=== PATIENT | male | born 1955 | race Caucasian/White ===

== ENCOUNTER 2017-11-22 13:06 | Emergency (ER) | payer MEDICAID ==
[~2017-11-22] VITALS: Ht 182.9 cm; Wt 68.0 kg
[~2017-11-22 13:06] MED LIST: NO REPORTABLE MEDS
--- NOTE | 2017-11-22 13:10 | NUR ---
BIBSELF - NAUSEA/EYE PAIN AND LEFT SIDED RIBCAGE PAIN X 3 DAYS, NAD NOTED, VSS, RESP EVEN AND UNLABORED, PT PUT ON MONITOR . AT BS.
--- NOTE | 2017-11-22 13:10 | NUR ---
Note ritchie in EDM - 11/22/17 at 1443 by DAWNA NAUSEA/EYE PAIN AND LEFT SIDED RIBCAGE PAIN X 3 DAYS, NAD NOTED, VSS, RESP EVEN AND UNLABORED, PT PUT ON MONITOR AND SEIZURE PRECAUTION IMPLEMENTED. AT .
[2017-11-22 13:53] LABS: BASOPHILS # (AUTO) 0.1 /CMM (0.0-0.2); BASOPHILS % (AUTO) 1.4 % (0.0-2.0); EOSINOPHILS # (AUTO) 0.2 /CMM (0.0-0.7); EOSINOPHILS % (AUTO) 2.3 % (0.0-6.0); HEMATOCRIT 45 % (39-51); HEMOGLOBIN 15.2 g/dL (13.5-17.5); LYMPHOCYTES # (AUTO) 1.6 /CMM (0.8-4.8); LYMPHOCYTES % (AUTO) 21.8 % (20.0-44.0); MEAN CORPUSCULAR HEMOGLOBIN 30 PG (26.0-33.0); MEAN CORPUSCULAR HGB CONC 34 g/dl (31.0-36.0); MEAN CORPUSCULAR VOLUME 87 fL (80-96); MONOCYTES # (AUTO) 0.4 /CMM (0.1-1.30); MONOCYTES % (AUTO) 6.1 % (2.0-12.0); NEUTROPHILS % (AUTO) 68.4 % (43.0-81.0); PLATELET COUNT (AUTO) 263 /CMM (150-450); RDW COEFFICIENT OF VARIATION 12.4 (11.5-15.0); RED BLOOD CELL COUNT(AUTO) 5.16 MIL/uL (4.5-6.0); WHITE BLOOD COUNT (AUTO) 7.3 K/uL (4.3-11.0)
[2017-11-22] MEDS ORDERED: ONDANSETRON HCL/PF 4 MG/2 ML VIAL ONE (13:57)
[2017-11-22] MEDS ORDERED: BENZ0.5T3 PO (13:58)
[2017-11-22] MEDS ORDERED: IBUP100O18 PO (13:58)
[2017-11-22] MEDS ORDERED: PERP4TAB11 PO (13:58)
[2017-11-22] MEDS ORDERED: SIMV20TA6 PO (13:58)
[2017-11-22] MEDS ORDERED: ONDANSETRON HCL/PF 4 MG/2 ML VIAL IVP ONE (14:00)
[2017-11-22 14:05] LABS: CALCIUM, SERUM 9.4 mg/dL (8.5-10.1); POTASSIUM 3.7 mmol/L (3.5-5.1)
[2017-11-22 14:10] LABS: INR 0.97 (0.85-1.15)
--- NOTE | 2017-11-22 14:14 | NUR ---
Kaushal dugan in [facility] - 11/22/17 at 1416 by DAWNA Patient discharged to home in stable condition. Written and verbal after care instructions given. Patient verbalizes understanding of instruction.
[2017-11-22] MEDS ORDERED: ASPIRIN 325 MG TABLET PO ONE (15:00)
[2017-11-22] MEDS ORDERED: ASPIRIN 325 MG TABLET ONE (15:03)
[2017-11-22 16:37] VITALS: BP 128/70
--- NOTE | 2017-11-22 16:37 | NUR ---
Patient discharged to home in stable condition. Written and verbal after care instructions given. Patient verbalizes understanding of instruction.IV removed. Catheter intact and site benign. Pressure and 4x4 applied to site. No bleeding noted.
== END 2017-11-22 16:38 | disposition home or self-care (01) ==
LOC: ER 13:07
DX: R07.89 Other chest pain (principal); G40.909 Epilepsy, unspecified, not intractable, without status epilepticus; I10 Essential (primary) hypertension; E78.00 Pure hypercholesterolemia, unspecified; F17.200 Nicotine dependence, unspecified, uncomplicated
CPT/HCPCS: 36415; 71045-TC; 80048-TC; 84484-TC; 85025-TC; 85730-TC; A4606; J2405; Z7610

== ENCOUNTER 2018-01-24 19:53 | Emergency (ER) | payer MEDICAID ==
[~2018-01-24] VITALS: Ht 182.9 cm; Wt 77.1 kg
[~2018-01-24 19:53] MED LIST changes: +BENZ0.5T43 PO; +IBUP100O19 PO; -NO REPORTABLE MEDS; +PERP4TAB11 PO; +SIMV20TA6 PO
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
--- NOTE | 2018-01-24 21:00 | NUR ---
PT OFF TO CT
[2018-01-24] MEDS ORDERED: ACETAMINOPHEN ES 500 MG TABLET ONE (21:12)
--- NOTE | 2018-01-24 21:17 | NUR ---
PT BACK FROM CT
[2018-01-24] MEDS: ACETAMINOPHEN 325 MG TABLET PO ONE (21:18)
[2018-01-24 22:05] VITALS: BP 122/71
== END 2018-01-24 22:06 | disposition home or self-care (01) ==
LOC: ER 19:55
DX: M54.5 Low back pain (principal); G40.909 Epilepsy, unspecified, not intractable, without status epilepticus; F20.0 Paranoid schizophrenia; F17.200 Nicotine dependence, unspecified, uncomplicated; V77.6XXA Passenger on bus injured in collision with fixed or stationary object in traffic accident, initial encounter; Y93.89 Activity, other specified; Y92.89 Other specified places as the place of occurrence of the external cause; Y99.8 Other external cause status
CPT/HCPCS: 72100-TC; A4606; Z7610

== ENCOUNTER 2018-04-26 18:35 | Emergency (ER) | payer MEDICAID ==
[~2018-04-26] VITALS: Ht 182.9 cm; Wt 77.1 kg
[2018-04-26 18:53] VITALS: BP 149/74
--- NOTE | 2018-04-26 19:14 | NUR ---
RECEIVED REPORT FROM MOLLY LEWIS FOR ROSS. NO S/S OF DISTRESS NOTED. WILL CONTINUE TO MONITOR PT.
== END 2018-04-26 20:12 | disposition home or self-care (01) ==
LOC: ER 18:36
DX: H61.23 Impacted cerumen, bilateral (principal); G40.909 Epilepsy, unspecified, not intractable, without status epilepticus; I10 Essential (primary) hypertension; F22 Delusional disorders; F20.9 Schizophrenia, unspecified; F17.200 Nicotine dependence, unspecified, uncomplicated
CPT/HCPCS: 69209; 99282; A4606; Z7610

== ENCOUNTER 2019-02-14 01:50 | Emergency (ER) | payer MEDICAID ==
[~2019-02-14] VITALS: Ht 182.9 cm; Wt 72.6 kg
--- NOTE | 2019-02-14 02:25 | NUR ---
BIBSELF C/O L SHOULDER PAIN X3 DAYS. -TRAUMA ALSO C/O PRODUCTIVE COUGH X4 DAYS +GREEN SPUTUM, -FEVER
[2019-02-14] MEDS ORDERED: ACETAMINOPHEN ES 500 MG TABLET ONE (02:43)
[2019-02-14 03:00] VITALS: BP 110/76
[2019-02-14] MEDS ORDERED: ACETAMINOPHEN ES 500 MG TABLET PO ONE (03:00)
--- NOTE | 2019-02-14 03:10 | NUR ---
Patient given written and verbal discharge instructions. Patient verbalizes understanding of instructions. Patient is ambulatory with steady gait. long term placement resources provided. Patient given list of available shelters in surrounding area. pt will arrange his own transpo. snacks provided. has proper clothing.
== END 2019-02-14 03:18 | disposition home or self-care (01) ==
LOC: ER 01:53
DX: G89.29 Other chronic pain (principal); M25.512 Pain in left shoulder; G40.909 Epilepsy, unspecified, not intractable, without status epilepticus; I10 Essential (primary) hypertension; E78.00 Pure hypercholesterolemia, unspecified; Z98.890 Other specified postprocedural states; Z87.891 Personal history of nicotine dependence

== ENCOUNTER 2024-01-24 08:57 | Emergency (ER) | payer BC, MEDICAID ==
[~2024-01-24] VITALS: Ht 172.7 cm; Wt 77.1 kg
[~2024-01-24 08:57] MED LIST changes: +IBUP-2383 PO; -IBUP100O19 PO; +SIMV-46 PO; -SIMV20TA6 PO
[2024-01-24] MEDS ORDERED: KETOROLAC TROMETHAMINE 15 MG/ML VIAL ONE (09:27)
[2024-01-24] MEDS ORDERED: SUMATRIPTAN SUCCINATE 6 MG/0.5 ML VIAL SQ ONE (09:27)
[2024-01-24] MEDS ORDERED: METOCLOPRAMIDE HCL 10 MG/2 ML VIAL ONE (09:27)
[2024-01-24 09:36] LABS: BASOPHILS % (AUTO) 0.9 % (0.0-2.0); EOSINOPHILS # (AUTO) 0.2 K/uL (0.0-0.7); EOSINOPHILS % (AUTO) 3.8 % (0.0-6.0); HEMATOCRIT 37 % (39-51); HEMOGLOBIN 12.4 g/dL (13.5-17.5); LYMPHOCYTES # (AUTO) 0.9 K/uL (0.8-4.8); LYMPHOCYTES % (AUTO) 19.6 % (20.0-44.0); MEAN CORPUSCULAR HEMOGLOBIN 29 PG (26.0-33.0); MEAN CORPUSCULAR HGB CONC 33 g/dl (31.0-36.0); MEAN CORPUSCULAR VOLUME 87 fL (80-96); MONOCYTES # (AUTO) 0.5 K/uL (0.1-1.30); MONOCYTES % (AUTO) 12.1 % (2.0-12.0); NEUTROPHILS # (AUTO) 2.9 K/uL (1.8-8.9); NEUTROPHILS % (AUTO) 63.6 % (43.0-81.0); PLATELET COUNT (AUTO) 258 K/uL (150-450); RED BLOOD CELL COUNT(AUTO) 4.29 MIL/uL (4.5-6.0); RED CELL DISTRIBUTION WIDTH 14.7 % (11.5-15.0); WHITE BLOOD COUNT (AUTO) 4.5 K/uL (4.3-11.0)
[2024-01-24] MEDS: KETOROLAC TROMETHAMINE 15 MG/ML VIAL IV ONE (09:44)
[2024-01-24] MEDS: SUMATRIPTAN SUCCINATE 6 MG/0.5 ML VIAL SQ ONE (09:44)
[2024-01-24] MEDS: METOCLOPRAMIDE HCL 10 MG/2 ML VIAL IV ONE (09:44)
[2024-01-24] MEDS: IV NS 0.9% 1,000 ML BAG IV ONE (09:44)
[2024-01-24 10:00] LABS: CALCIUM, SERUM 7.9 mg/dL (8.5-10.1); CARBON DIOXIDE 29 mmol/L (21-32); CHLORIDE 103 mmol/L (98-107); CREATININE 0.9 mg/dL (0.6-1.3); GLUCOSE 123 mg/dL (74-106); POTASSIUM 3.7 mmol/L (3.5-5.1); SODIUM SERUM 140 mmol/L (136-145); UREA NITROGEN, BLOOD 15 mg/dL (7-18)
[2024-01-24 10:06] LABS: ALANINE AMINOTRANSFERASE 93 U/L (12-78); ALBUMIN 3.2 g/dL (3.4-5.0); ALKALINE PHOSPHATASE 101 U/L (46-116); ASPARTATE AMINOTRANSFERASE 44 U/L (15-37); BILIRUBIN,DIRECT 0.1 mg/dL (0.0-0.2); BILIRUBIN,TOTAL 0.5 mg/dL (0.2-1.0)
[2024-01-24] MEDS ORDERED: KETO10TA2 PO (11:10)
[2024-01-24] MEDS ORDERED: METO-295 PO (11:10)
[2024-01-24] MEDS ORDERED: SUMA100T PO (11:10)
[2024-01-24] MEDS ORDERED: GABA-532 PO (11:23)
[2024-01-24] MEDS: HALOPERIDOL LACTATE INJ 5 MG/ML VIAL IV ONE (11:47)
[2024-01-24 12:21] VITALS: BP 121/64; TEMP 98.1; O2SAT 100
== END 2024-01-24 12:25 | disposition home or self-care (01) ==
LOC: ER 09:00
DX: R51.9 Headache, unspecified (principal); R07.89 Other chest pain; I10 Essential (primary) hypertension; G40.909 Epilepsy, unspecified, not intractable, without status epilepticus; E78.00 Pure hypercholesterolemia, unspecified; F19.10 Other psychoactive substance abuse, uncomplicated; Z59.00 Homelessness unspecified
CPT/HCPCS: 99285; 96374; 70450; 71045; 96361; 96375; 96372; 93005; 85025; 80048; 80076; 36415; 84484; J3030; J2765; J7030; J1885

== ENCOUNTER 2024-03-04 20:37 | Emergency (ER) | payer BC ==
[~2024-03-04] VITALS: Ht 172.7 cm; Wt 68.0 kg
[~2024-03-04 20:37] MED LIST changes: +GABA-532 PO; +KETO10TA2 PO; +METO-295 PO; +SUMA100T PO
[2024-03-04] MEDS ORDERED: NAPR-1164 PO (23:50)
[2024-03-05 00:13] VITALS: BP 127/76; TEMP 98.2; O2SAT 98
== END 2024-03-05 00:14 | disposition home or self-care (01) ==
LOC: ER 20:42
DX: M17.11 Unilateral primary osteoarthritis, right knee (principal); G40.909 Epilepsy, unspecified, not intractable, without status epilepticus; I10 Essential (primary) hypertension; E78.00 Pure hypercholesterolemia, unspecified; F19.10 Other psychoactive substance abuse, uncomplicated
CPT/HCPCS: 73700-TC